=== PATIENT | female | born 1975 | race Native Hawaiian/Other Pacific Islander ===

== ENCOUNTER 2016-08-29 15:27 | Emergency (ER) | payer OTHER ==
[~2016-08-29] VITALS: Ht 162.6 cm; Wt 65.8 kg
[2016-08-29 16:52] LABS: PLATELET COUNT 542 K/uL (152-353)
== END 2016-08-29 17:34 | disposition home or self-care (01) ==
LOC: ED 15:27
DX: L30.8 Other specified dermatitis (principal); B37.3 Candidiasis of vulva and vagina
CPT/HCPCS: 85027; 87070; 87077; 87185; 87186; 87205; 99283

== ENCOUNTER 2017-07-22 17:00 | Inpatient (IN) | payer OTHER ==
[~2017-07-22] VITALS: Ht 154.9 cm; Wt 60.4 kg
[2017-07-22 17:05] VITALS: BP 133/92; TEMP 98.4
[2017-07-22 17:51] LABS: PLATELET COUNT 461 K/uL (152-353)
[2017-07-22 18:00] VITALS: BP 138/95
[2017-07-22 18:05] LABS: POTASSIUM 3.8 mmol/L (3.6-5.2); SODIUM 132 mmol/L (136-145)
[2017-07-22 19:00] VITALS: BP 135/82; TEMP 98
[2017-07-22 20:05] VITALS: BP 131/83
[2017-07-22 21:00] VITALS: BP 130/78
--- NOTE | 2017-07-22 21:35 | NUR ---
PATIENT RECEIVED FROM ER VIA WC. ALERT AAND ORIENTED X 3. PT GIVEN EDUCATION REGARDING BED CONTROLS AND CALL LIGHT. INSTRUCTED TO KEEP BED IN LOW POSITION. 20G SL INTACT TO RAC. AWAITING PHARMACY TO BEGIN IVF.
[2017-07-22 22:04] VITALS: BP 131/68; TEMP 98.6; Ht 154.9 cm; Wt 60.4 kg
[2017-07-23] VITALS: BP 128/76; TEMP 98.3
[2017-07-23 04:00] VITALS: BP 143/87; TEMP 98
[2017-07-23 08:00] VITALS: BP 138/69; TEMP 97.9
[2017-07-23 10:12] LABS: PLATELET COUNT 344 K/uL (152-353)
[2017-07-23 10:48] LABS: POTASSIUM 3.8 mmol/L (3.6-5.2); SODIUM 136 mmol/L (136-145)
[2017-07-23 12:00] VITALS: BP 129/72; TEMP 97.8
--- NOTE | 2017-07-23 14:30 | NUR ---
PT TO OR VIA BED IN STABLE COND.
--- NOTE | 2017-07-23 16:05 | NUR ---
PT BACK FROM OR IN STABLE COND.
--- NOTE | 2017-07-23 16:30 | NUR ---
ASSISTED PT TO BR. PT C/O OF DIZZINESS AND DROWSY. PT UNSTABLE WALKING TO BR.
--- NOTE | 2017-07-23 16:35 | NUR ---
ASSISTED PT BACK TO BED. PT C/O PAIN AND NAUSEA. WILL MEDICATE.
--- NOTE | 2017-07-23 17:00 | NUR ---
ASSISTED PT TO BR AND BACK.
--- NOTE | 2017-07-23 18:29 | NUR ---
PT SITTING UP DRINKING. PT MELISSA WELL.
[2017-07-23 20:00] VITALS: BP 131/69; TEMP 98
[2017-07-24] VITALS: BP 134/65; TEMP 98.3
[2017-07-24 04:00] VITALS: BP 118/68; TEMP 97.6
[2017-07-24 05:44] LABS: PLATELET COUNT 331 K/uL (152-353)
[2017-07-24 05:47] LABS: POTASSIUM 3.5 mmol/L (3.6-5.2); SODIUM 134 mmol/L (136-145)
[2017-07-24 12:00] VITALS: BP 131/78; TEMP 98.8
[2017-07-24 16:00] VITALS: BP 112/70; TEMP 99
--- NOTE | 2017-07-24 18:02 | NUR ---
IV D/C'D. PRESCRIPTION GIVEN. PT INSTRUCTED TO CALL DR. SAGE OFFICE THURSDAY AND MAKE A FU APT, NO BATHS FOR 2 WEEKS, NO SHOWER FOR 48 HOURS, NOT TO LIFT OVER 10 LBS UNTIIL AFTER OKAY'D BY . PT HAS NO FUTHER QUESTIONS. PT ACCOMPANIED BY FAMILY AND WHELED OUT VIA W/C AT THIS TIME. NO PROBLEMS NOTED.
== END 2017-07-24 17:33 | disposition home or self-care (01) | DRG 419 ==
LOC: ED 17:00 → MED/SURG 20:50
PROVIDERS: Family Medicine
PROC: 0FT44ZZ Resection of Gallbladder, Percutaneous Endoscopic Approach (ICD-10-PCS; principal; 2017-07-23)
DX: K80.12 Calculus of gallbladder with acute and chronic cholecystitis without obstruction (principal)
CPT/HCPCS: 36415; 80053; 82150; 83690; 83735; 85027; 96365; 96372; 96374; 96375; 99284; J0132; J0330; J1170; J1650; J1885; J2001; J2175; J2250; J2405; J2550; J2704; J2710; J3010; J3411; J3490; Q9963; S0028

== ENCOUNTER 2021-08-20 10:11 | Emergency (ER) | payer OTHER ==
[~2021-08-20] VITALS: Ht 154.9 cm; Wt 68.0 kg
[2021-08-20 10:15] VITALS: TEMP 96.8
[2021-08-20 11:15] VITALS: BP 140/88
== END 2021-08-20 11:20 | disposition home or self-care (01) ==
LOC: ED 10:11
DX: J06.9 Acute upper respiratory infection, unspecified (principal); R11.2 Nausea with vomiting, unspecified; Z20.822 Contact with and (suspected) exposure to COVID-19; F17.210 Nicotine dependence, cigarettes, uncomplicated
CPT/HCPCS: 87502; 87635; 87651; 99283; U0003